=== PATIENT | male | born 1935 | race Caucasian/White ===

== ENCOUNTER → 2017-12-07 02:00 | Outpatient (REF) | payer MEDICARE, OTHER, SELFPAY ==
[2017-12-07 04:59] LABS: Adenovirus F 40/41, stool Not Detected (NotDetected); Astrovirus Not Detected (NotDetected); Campylobacter Not Detected (NotDetected); Clostridium Difficile A/B, PCR Not Detected (NotDetected); Cryptosporidium Not Detected (NotDetected); Cyclospora Cayetanesis Not Detected (NotDetected); Entamoeba histolytica Not Detected (NotDetected); Enteroaggregative E coli Not Detected (NotDetected); Enteropathogenic E coli Not Detected (NotDetected); Enterotoxigenic E coli Not Detected (NotDetected); Giardia lamblia Not Detected (NotDetected); Norovirus Not Detected (NotDetected); Plesimonas Shigalloides, PCR Not Detected (NotDetected); Rotavirus A Not Detected (NotDetected); Salmonella, PCR Not Detected (NotDetected); Sapovirus Not Detected (NotDetected); Shiga-like toxin E coli Not Detected (NotDetected); Shigella Enterovasive E coli Not Detected (NotDetected); Vibrio Cholerae Not Detected (NotDetected); Vibrio, PCR Not Detected (NotDetected); Yersinia Entercolitica, PCR Not Detected (NotDetected)
== END ==
LOC: LAB 02:00
PROVIDERS: Visit Provider Emergency Medicine
DX: R19.7 Diarrhea, unspecified (principal)
CPT/HCPCS: 87507

== ENCOUNTER → 2018-04-23 13:54 | Outpatient (CLI) | payer MEDICARE, MEDICAID, SELFPAY ==
--- NOTE | 2018-04-23 13:57 | CI_ITS ---
Cerebrovascular Exam Indications: 780.4 Dizziness and giddiness. IMPRESSIONS 1. The bilateral vertebral arteries are patent with normal antegrade flow. 2. Study suggests 20-49% stenosis involving the right internal carotid artery. 3. Study suggests less than 20% stenosis involving the left internal carotid artery. History: Coronary artery disease. Risk factors: Hypertension. Diabetes mellitus. Carotid duplex study. Complete study and Doppler flow study including spectral analysis, color and jewell scale imaging. Location: Vascular laboratory. Patient status: Outpatient. Tables: Arterial flow: + +--------+--------+ Location V sys V ed + +--------+--------+ Right CCA - proximal 51.9cm/s 11.8cm/s + +--------+--------+ Right CCA - distal 33.1cm/s 8.3cm/s + +--------+--------+ Right ECA 45.2cm/s -------- + +--------+--------+ Right ICA - proximal 43cm/s 8.8cm/s + +--------+--------+ Right ICA - mid 35.3cm/s 11.6cm/s + +--------+--------+ Right ICA - distal 49.1cm/s 14.9cm/s + +--------+--------+ Right vertebral 24.3cm/s -------- + +--------+--------+ Left CCA - proximal 41.9cm/s 9.4cm/s + +--------+--------+ Left CCA - distal 40.3cm/s 8.3cm/s + +--------+--------+ Left ECA 49.6cm/s 40.3cm/s + +--------+--------+ Left ICA - proximal 41.4cm/s 10.5cm/s + +--------+--------+ Left ICA - mid 41.4cm/s 13.8cm/s + +--------+--------+ Left ICA - distal 50.2cm/s 16.5cm/s + +--------+--------+ Left vertebral 23.2cm/s -------- + +--------+--------+ Velocity ratios: + + + + + + Right, V sys Right, V ed Left, V sys Left, V ed + + + + + + Max ICA/dist CCA 1.48 1.8 1.25 2 + + + + + + (Report amended ) Electronically signed by: Dashawn Weiner [id number]
--- NOTE | 2018-04-23 13:57 | CA_ITS ---
PROCEDURE: INDICATIONS FOR THE TEST: Chest pain COPD Heart MurmurX Tobacco Smoking Palpitations Fatigue Syncope Edema HypertensionXDiabetes MellitusX Rheumatic Fever SOB DOEXObesity HyperlipidemiaX Family History HD Additional History CAD,DIZZINESS PATIENT INFORMATION HEIGHT: 74 WEIGHT:218 GENDER: Male B/P:118/72 2-D/M-MODE INTERPRETATION: 2-D MEASUREMENTS OBSERVED VALUES IN CMS Right Ventricular Dimension (RVDd) 2.6 Interventricular Septum (Thickness)(IVsd) 1.1 Left Ventricular Internal Dimensions(LVIDd) 5.2 Left Ventricular Posterior Wall (Thickness)(LVPWd) 1.2 Aortic Root 3.7 Aortic Cusp Separation 1.0 Left Atrial Dimensions (LAD) 3.0 2D 1. Left atrium is mildly enlarged, left ventricle is normal size, mild concentric left ventricular hypertrophy, visually estimated ejection fraction of 55% with no regional wall motion abnormality, septum has sigmoid configuration. 2. The right atrium is mildly enlarged, right ventricle is normal size and contractility. 3. The aortic valve is thickened and calcified with severe restriction the leaflet mobility. 4. The mitral and tricuspid valve leaflets are minimally thickened. 5. The pulmonic valve is poorly visualized. 6. No significant pericardial effusion noted. DOPPLER INTERROGATION: 1. The maximum aortic out flow velocity recorded is 4.1 m/s, resulting in a mean gradient across valve of 39 mmHg, the valve area is not accurately calculated, this represents severe aortic stenosis. There is mild aortic insufficiency present. 2. The mitral inflow velocities within normal range, there is no mitral stenosis, there is mild mitral regurgitation, grade 1 diastolic dysfunction seen with tissue Doppler evidence of raised left atrial pressure. 3. Mild tricuspid regurgitation, tricuspid regurgitation jet velocity is inadequate for calculation of the right ventricular systolic pressure. CONCLUSION: 1. Mildly enlarged left atrium, normal left ventricular size, mild concentric left ventricular hypertrophy, visually estimated ejection fraction 55% with no regional wall motion abnormality, septum has sigmoid configuration. Grade 1 diastolic dysfunction seen with tissue Doppler evidence of raised left atrial pressure. 2. Thickened and calcified aortic valve with mean gradient across valve of 39 mmHg represents severe aortic stenosis, there is mild aortic insufficiency. 3. Mild mitral and tricuspid regurgitation 4. No significant pericardial effusion noted.
== END ==
PROVIDERS: PCP Emergency Medicine; Visit Provider Nurse Practitioner Family
DX: E11.8 Type 2 diabetes mellitus with unspecified complications (principal); I10 Essential (primary) hypertension; R01.1 Cardiac murmur, unspecified; R09.89 Other specified symptoms and signs involving the circulatory and respiratory systems; R42 Dizziness and giddiness; E78.49 Other hyperlipidemia; Z79.84 Long term (current) use of oral hypoglycemic drugs; Z87.891 Personal history of nicotine dependence
CPT/HCPCS: 93306; 93880

== ENCOUNTER → 2018-12-25 15:03 | Outpatient (CLI) | payer MEDICARE, MEDICAID, SELFPAY ==
[2018-12-25 15:07] LABS: Adenovirus F 40/41, stool Not Detected (NotDetected); Astrovirus Not Detected (NotDetected); Campylobacter Not Detected (NotDetected); Clostridium Difficile A/B, PCR Not Detected (NotDetected); Cryptosporidium Not Detected (NotDetected); Cyclospora Cayetanesis Not Detected (NotDetected); Entamoeba histolytica Not Detected (NotDetected); Enteropathogenic E coli Not Detected (NotDetected); Enterotoxigenic E coli Not Detected (NotDetected); Giardia lamblia Not Detected (NotDetected); Norovirus Not Detected (NotDetected); Plesimonas Shigalloides, PCR Not Detected (NotDetected); Rotavirus A Not Detected (NotDetected); Salmonella, PCR Not Detected (NotDetected); Sapovirus Not Detected (NotDetected); Shiga-like toxin E coli Not Detected (NotDetected); Shigella Enterovasive E coli Not Detected (NotDetected); Vibrio Cholerae Not Detected (NotDetected); Vibrio, PCR Not Detected (NotDetected); Yersinia Entercolitica, PCR Not Detected (NotDetected)
[2018-12-25 17:29] LABS: Enteroaggregative E coli Detected (NotDetected)
== END ==
PROVIDERS: Visit Provider Emergency Medicine
DX: R19.7 Diarrhea, unspecified (principal); A04.0 Enteropathogenic Escherichia coli infection
CPT/HCPCS: 87506

== ENCOUNTER → 2019-01-06 12:30 | Outpatient (CLI) | payer MEDICARE, MEDICAID, SELFPAY ==
--- NOTE | 2019-01-06 13:00 | FL_ITS ---
PROCEDURE: FL BARIUM SWALLOW MODIFIED CLINICAL INDICATION: DYSPHAGIA COMPARISON: No exams were available for comparison TECHNIQUE: Patient administered varying consistencies of barium contrast, while viewed in lateral position under real-time fluoroscopy with cine recording. FLUOROSCOPY TIME:3 minutes and 56 seconds The study was performed in conjunction with speech pathologist. Please see that report & recommendations. FINDINGS: Patient was given varying consistencies of barium. There is moderate delay in initiation of the swallowing mechanism as well as stasis within the vallecula and piriform sinuses. No obvious aspiration or penetration evident. There was poor bolus formation.. IMPRESSION: Delay and stasis with poor bolus formation. No aspiration or penetration Please see speech pathologist report and recommendations. Dictated by: Dashawn Weiner MD 01/07/2019 08:31 Electronically signed by Dashawn Weiner MD in [place] 01/07/2019 08:31
--- NOTE | 2019-01-06 14:23 | HMH.SLMBS2 ---
Speech & Language Evaluation Speech/Language Mod Barium Swallow Start: 01/06/19 14:02 Freq: once Status: Complete Protocol: Document 01/06/19 14:02 TAHMINA (Rec: 01/06/19 14:23 CMA [id number]) [facility] [place] Recommendations Diet Dietary Recommendations Dysphagia Mechanical Soft, Ground Meats,Thin Liquids Treatment/Strategies Strategy/Precaution Recommend Sitting Upright (90 deg) Referrals/Other Other Recommendations Sit upright for an hour following meals Mod Barium Swallow Impressions Summary and Impressions Oral Phase Impression Mild Impairment Oral Phase Summary Patient presented with mild oral phase impairment characterized by difficulty with mastication of mechanical soft trial due to insufficient dentition. Pharyngeal Phase Impression Moderate Impairment Pharyngeal Phase Summary Patient presented with moderate pharyngeal phase impairment characterized by significant vallecular pooling following trials of thin, nectar liquid, pudding, puree, mechanical soft, and pill with thin liquid wash. Compensatory strategies did not improve pooling. Speech/Language MBS Assessment/Goals/Plan Assessment Date of Evaluation: 01/06/19 Evaluation Type Initial Certification Assessment/Problems Dysphagia Does Patient Qualify for Service No Qualify/Failure Comment Patient will be followed up at SNF. Recommendations PHYSICIAN CERTIFICATION: The specified therapy services are required, authorized, and reviewed every 30 days. Diet Recommendations Dysphagia Mechanical Soft Liquid Type Recommendations Normal/Thin SL Swallow Guidelines Standard Aspiration Prec. Dysphagia Swallow Precautions/Strategies Sitting Upright (90 deg) Plan Pt/Guardian verbally ack understanding Yes of dx/prognosis/goals G -code Required Yes G-CODES ST Current Status [id number] ST Current Status Modifier CJ-At least 20% but less than 40% impaired, limited or restricted ST Goal Status [id number] ST Goal Status Modifier CJ-At least 20% but less than 40% impaired, limited or restricted Mod Barium Swallow Setup Exam Setup Radiologist Dashawn Weiner Level of Consciousness Awake
== END ==
PROVIDERS: PCP Emergency Medicine; Visit Provider Emergency Medicine
DX: R13.10 Dysphagia, unspecified (principal)
CPT/HCPCS: 70371; 92611

== ENCOUNTER → 2019-03-09 22:55 | Outpatient (REF) | payer MEDICARE, MEDICAID, SELFPAY | LOC: LAB.DROPOF 22:55 | PROVIDERS: Visit Provider Emergency Medicine | DX: R50.9 Fever, unspecified (principal); R05 Cough; R09.89 Other specified symptoms and signs involving the circulatory and respiratory systems | CPT/HCPCS: 87275; 87276 ==

== ENCOUNTER → 2019-04-24 10:46 | Outpatient (CLI) | payer MEDICARE, MEDICAID, SELFPAY ==
--- NOTE | 2019-04-24 10:49 | FL_ITS ---
PROCEDURE: FL BARIUM SWALLOW MODIFIED CLINICAL INDICATION: DYSPHAGIA COMPARISON: No exams were available for comparison TECHNIQUE: Patient administered varying consistencies of barium contrast, while viewed in lateral position under real-time fluoroscopy with cine recording. FLUOROSCOPY TIME:2 minutes and 55 seconds The study was performed in conjunction with speech pathologist. Please see that report & recommendations. FINDINGS: Patient was given varying consistencies of barium. No aspiration or penetration.. There was vallecular residue with all consistencies with delay in initiation of the swallowing mechanism with poor oral motor control. There was a persistent lobular filling defect within the upper esophagus at the C5-C6 level. Possibly due to small polyp IMPRESSION: No aspiration or penetration identified. There was delay in initiation of the swallowing mechanism with a moderate amount of residual. There was also a persistent filling defect in the upper esophagus which could be due to small polyp. Please see speech pathologist report and recommendations. Dictated by: Dashawn Weiner MD 04/25/2019 17:27 Electronically signed by Dashawn Weiner MD in [place] 04/25/2019 17:27
--- NOTE | 2019-04-24 14:07 | HMH.SLMBS2 ---
Speech & Language Evaluation Speech/Language Mod Barium Swallow Start: 04/24/19 13:53 Freq: once Status: Complete Protocol: Document 04/24/19 13:53 NAPOLEON (Rec: 04/24/19 14:07 NAPOLEON [id number]) General Information General Current Food Consistancy Pureed,Thin Liquids Dentition Poor Dentition Oxygen Status Room Air Patient Orientation Person,Time Ability to Follow Directions Fair Communication Ability No Impairment MBS Recommendations Diet Dietary Recommendations Pureed,Thin Liquids,Other Comment Straw only Treatment/Strategies Strategy/Precaution Recommend Sitting Upright (90 deg), Liquids from Straw,Small Bites and Sips,Alternate Liquids/ Solids Mod Barium Swallow Impressions Summary and Impressions Oral Phase Impression Mild Impairment Oral Phase Summary Mr. Ornelas talked consistently during evaluation which made it difficult to masticate mechanical soft along with poor dentition. Pharyngeal Phase Impression Moderate Impairment Pharyngeal Phase Summary Mr. Ornelas exhibited aspiration with thin liquids via cup during the swallow. He did cough after the swallow but was unable to clear aspirated liquids. He had vallecular residue with all consistencies even using a thin wash due to atrophy of epiglottis. Speech/Language MBS Assessment/Goals/Plan Assessment Date of Evaluation: 04/24/19 Evaluation Type Initial Certification Assessment/Problems Dysphagia Does Patient Qualify for Service No Qualify/Failure Comment Diet remains appropriate for Mr. Ornelas however it is recommended he use straws only . Recommendations PHYSICIAN CERTIFICATION: The specified therapy services are required, authorized, and reviewed every 30 days. Crush Meds Crush all meds Plan Pt/Guardian verbally ack understanding Yes of dx/prognosis/goals G -code Required No Mod Barium Swallow Setup Exam Setup Radiologist Dashawn Weiner Level of Consciousness Awake,Alert,Appropriate Position (degrees) 90 Mod Barium Swallow-Lat View Textures Lateral View Food Presentation Thin Liquid via Spoon,Thin Liquid via Cup,Th
== END ==
PROVIDERS: PCP Emergency Medicine; Visit Provider Emergency Medicine
DX: R13.10 Dysphagia, unspecified (principal)
CPT/HCPCS: 70371; 92611

== ENCOUNTER → 2019-05-26 17:34 | Outpatient (CLI) | payer MEDICARE, MEDICAID, SELFPAY ==
[2019-05-26 17:38] LABS: Microscopic, Urine URINE MICROSCOPIC (MICROSCOPIC)
[2019-05-26 18:49] LABS: Appearance,Urine CLEAR (Clear); Bilirubin,Urine Negative (Negative); Blood, Urine Negative (Negative); Color,Urine YELLOW (Yellow); Glucose,Urine (UA) Negative (Negative); Ketones,Urine Negative (Negative); Leukocyte Esterase,Urine Negative (Negative); Nitrate,Urine Negative (Negative); Protein,Urine Negative (Negative); Specific Gravity, Urine 1.015 (1.005-1.030); Urobilinogen,Urine 0.2 EU/dl (0.2)
[2019-05-26 19:22] LABS: Bacteria,Urine Trace /lpf; Squamous Epithelial Cell,Urine Occasional #/hpf (0-5); WBC,Urine Occasional #/hpf (0-3)
== END ==
PROVIDERS: Visit Provider Emergency Medicine
DX: N39.0 Urinary tract infection, site not specified (principal)
CPT/HCPCS: 81001; 87086

== ENCOUNTER → 2019-06-02 07:21 | Outpatient (CLI) | payer MEDICARE, MEDICAID, SELFPAY ==
--- NOTE | 2019-06-02 07:21 | CA_ITS ---
APPROVED REPORT Raw Stock Drier Tender: Britney Judd RVT Laterality: Bilateral Study Quality: Good Indications: Carotid stenosis Risk Factors Hypertension: Hyperlipidemia Diabetes Doppler Spectral Velocity Analysis ECA (R) 42.80/9.90 cm/s ECA (L) 37.70/8.90 cm/s dICA (R) 47.80/19.70 cm/s dICA (L) 44.70/17.20 cm/s Tyrone (R) 48.10/19.10 cm/s [place]one (L) 30.00/10.40 cm/s pICA (R) 27.50/9.10 cm/s pICA (L) 32.20/13.20 cm/s dCCA (R) 35.40/10.00 cm/s dCCA (L) 35.00/7.70 cm/s pCCA (R) 43.30/7.50 cm/s pCCA (L) 63.60/15.40 cm/s ICA/CCA 1.36 Vert (L) 29.70/4.70 cm/s ICA/CCA 1.28 Conclusion Study suggests 20-49% stenosis of the right internal cartoid artery unchanged from 04/23/18 study. Study suggests less than 20% stenosis of the left internal crtoid artery unchanged from the 04/23/18 study. Antegrade flow seen in the left vertebral artery. Non-visualization of the right vertebral artery. Electronically signed by : Dashawn Weiner MD 06/02/2019 15:31:21
--- NOTE | 2019-06-02 07:21 | CA_ITS ---
APPROVED REPORT EXAM: Comprehensive 2D, Doppler, and color-flow Echocardiogram Cfo Controller: Marilee Wasserman CRT Ht: 6 ft 2 in Wt: 180lbs BSA: 2.08 BP: 110/62 mmHg Indications: Abnormal ECG, Aortic Valve Disease, Diabetes, Hyperlipidemia, bradycardia, 2D Dimensions LVOT 1.46 cm (M/F) 1.5-2.5 M-Mode Dimensions RVDd 2.65 cm (0.9-2.6) LVDd 4.44 cm (3.5-5.7) LVDs 3.19 cm (3.5-5.7) IVSd 1.97 cm (0.6-1.1) PWd 0.54 cm (0.6-1.1) EF (Teich) 54.70% FS 28.20% EDV (Teich) 89.60 mL ESV (Teich) 40.60 mL LV Diastology E/A Ratio 2.69 Aortic Valve LVOT Max 63.00 (70-110 cm/s) LVOT VTI 13.18 cm Mitral Valve MV A Velocity 45.00 (40-130 cm/s) Left Ventricle Left atrium is moderately enlarged, left ventricle is normal size, mild concentric left ventricular hypertrophy, visually estimated ejection fraction approximately 50% with no regional wall motion abnormality, endocardial surfaces are very poorly visualized. Right Ventricle Right atrium and right ventricular mildly enlarged with normal contractility. Aortic Valve Aortic valve is thickened and calcified with severe restriction in leaflet mobility, the mean gradient across aortic valve is approximately 40 mmHg, valve area is not accurately calculated, there is severe aortic stenosis, there is mild aortic insufficiency. Mitral Valve Mitral valve leaflets are minimally thickened, there is no mitral stenosis, there is mild mitral regurgitation. Tricuspid Valve Tricuspid valve is grossly normal, there is mild tricuspid regurgitation. Tricuspid regurgitation jet velocity is inadequate for calculation of the right ventricular systolic pressure. Pulmonic Valve Pulmonic valve is poorly visualized. Great Vessels Aortic root is normal size. Pericardium No significant pericardial effusion noted. Conclusion 1. The left atrium, normal left ventricular size, mild concentric left ventricular hypertrophy, visually estimated ejection fraction 50% with no regional wall motion abnormality, diastolic parameters are inconclusive. 2. Thickened and calcified aortic valve with severe restriction in leaflet mobility, the mean gradient across aortic valve is approximately 40 mmHg, this represents severe aortic stenosis, there is mild aortic insufficiency. 3. Mild mitral and tricuspid regurgitation. 4. No significant pericardial effusion noted. Electronically signed by : Lucian Johnson, 06/02/2019 21:39:44
== END ==
PROVIDERS: PCP Emergency Medicine; Visit Provider Urology
DX: E11.8 Type 2 diabetes mellitus with unspecified complications (principal); I10 Essential (primary) hypertension; I25.10 Atherosclerotic heart disease of native coronary artery without angina pectoris; I35.0 Nonrheumatic aortic (valve) stenosis; I44.0 Atrioventricular block, first degree; I65.23 Occlusion and stenosis of bilateral carotid arteries; R00.1 Bradycardia, unspecified; R01.1 Cardiac murmur, unspecified; R09.89 Other specified symptoms and signs involving the circulatory and respiratory systems; R94.31 Abnormal electrocardiogram [ECG] [EKG]; E78.49 Other hyperlipidemia
CPT/HCPCS: 93306; 93880

== ENCOUNTER 2019-09-17 08:17 | Inpatient (IN) | payer MEDICARE, MEDICAID, SELFPAY ==
[2019-09-17] VITALS (13 sets, daily range): BP systolic 95–121; BP diastolic 56–100; PULSE 100–132; RESP 18–26; TEMP 36.4–36.8; O2SAT 95–100; BMI 26.4; BMI 27.1; BMI 25.4
--- NOTE | 2019-09-17 08:18 | ECG_ITS ---
APPROVED REPORT Exam: Resting ECG HR:126 bpm ECG Measurements Heart Rate 126 AXES QRSd 72 QRS 40 QT 396 T 130 QTc 573 <Conclusion> Atrial fibrillation with rapid ventricular response with premature ventricular or aberrantly conducted complexes Septal infarct, age undetermined Abnormal ECG Electronically signed by : Bryce Stuart, 09/19/2019 07:56:17
--- NOTE | 2019-09-17 08:21 | XR_ITS ---
PROCEDURE: XR CHEST PORTABLE CLINICAL HISTORY: ams, cough COMPARISON: CR CXR1 CHEST-PORTABLE from 03/17/2016 CR CXR CHEST(2 VIEWS-NOT PORTABLE) from 03/18/2016 CR XR CHEST PORTABLE from 12/24/2018 FINDINGS: There is cardiomegaly without failure. Increased markings are present involving the left lung suspicious for underlying pneumonia. Patchy density is present also in the right lung base which could be related to an area of infiltrate. No acute bony abnormalities. IMPRESSION: Overall slight increased density of the left lung and right lung base suspicious for pneumonia Dictated b Dashawn Weiner MD 09/17/2019 09:35 Dashawn Weiner MD in [place] 09/17/2019 09:35
--- NOTE | 2019-09-17 08:25 | HMH.EDGENADL ---
ED Disposition Clinical Impression: Urinary tract infection Qualifiers: Urinary tract infection type: acute cystitis Hematuria presence: without hematuria Qualified Code(s): N30.00 - Acute cystitis without hematuria Sepsis Qualifiers: Sepsis type: sepsis due to unspecified organism Sepsis acute organ dysfunction status: without acute organ dysfunction Qualified Code(s): A41.9 - Sepsis, unspecified organism Pneumonia Qualifiers: Pneumonia type: due to unspecified organism Laterality: right Lung location: lower lobe of lung Qualified Code(s): J18.9 - Pneumonia, unspecified organism Disposition: Admitted As Inpatient Condition on Discharge: Fair Time of Disposition: 10:38 - Critical Care Critical Care Time: No Attestation: On , the high probability of a clinically significant, sudden or life threatening deterioration of the following system(s) required my full and direct attention, intervention and personal management. The time I documented below is in addition to time spent performing reported procedures but includes the following listed in this critical care notation. Medical Decision Making - Medical Records Medical records reviewed: Yes: I reviewed the patient's medical records. - Iban Inquiry Pt receiving controlled substance: No Vital Signs: 09/17/19 08:18 09/17/19 08:53 09/17/19 09:05 Temperature 97.5 F L Temperature Source Rectal Pulse Rate Pulse Rate [Left Radial] 132 H 112 H 130 H Respiratory Rate 26 H Blood Pressure Blood Pressure [Right Arm] 104/78 L 95/71 L 112/93 H Blood Pressure Mean [Right Arm] 86 79 99 Blood Pressure Source [Right Arm] Automatic Cuff Blood Pressure Position Blood Pressure Position [Right Arm] Sitting Sitting Sitting 02 Sat by Pulse Oximetry 96 97 96 Oxygen Delivery Method Room Air Room Air 09/17/19 09:27 09/17/19 10:00 09/17/19 10:37 Temperature Temperature Source Pulse Rate Pulse Rate [Left Radial] 124 H 120 H 115 H Respiratory Rate Blood Pressure Blood Pressure [Right Arm] 96/69 L 95/73 L 121/100 H Blood Pressure Mean [Right Arm] 78 80 107 Blood Pressure Source [Right Arm] Automatic Cuff Automatic Cuff Automatic Cuff Blood Pressure Position Blood Pressure Position [Right Arm] Sitting Sitting Sitting 02 Sat by Pulse Oximetry 95 96 Oxygen Delivery Method Room Air 09/17/19 11:00 09/17/19 11:43 09/17/19 11:47 Temperature 98 F Temperature Source Oral Pulse Rate 122 H Pulse Rate [Left Radial] 118 H Respiratory Rate 22 Blood Pressure 102/61 L Blood Pressure [Right Arm] 106/67 L Blood Pressure Mean [Right Arm] 80 Blood Pressure Source [Right Arm] Automatic Cuff Blood Pressure Position Sitting Blood Pressure Position [Right Arm] Sitting 02 Sat by Pulse Oximetry 97 Oxygen Delivery Method Room Air Room Air - Lab Data Lab Results 09/17/19 08:30: WBC 5.1, RBC 4.05 L, Hgb 11.0 L, Hct 32.0 L, MCV 79.1 L, MCH 27.1, MCHC 34.3, RDW 15.8, Plt Count 239, MPV 8.6, Neut % (Auto) 66.8, Lymph % (Auto) 23.4, Dillingham % (Auto) 7.1, Eos % (Auto) 2.5, Baso % (Auto) 0.3, Neut # (Auto) 3.4, Lymph # (Auto) 1.2, [place]ham # (Auto) 0.4, Eos # (Auto) 0.1, Baso # (Auto) 0.0 09/17/19 08:30: Sodium 139, Potassium 4.5, Chloride 109 H, Carbon Dioxide 22, Anion Gap 12.5, BUN 24 H, Creatinine 1.00, Estimated Creat Clear 69, Estimated GFR 71, Est GFR ( Amer) 86, Glucose 115 H, Calcium 9.7, Total Bilirubin 0.6, AST 23, ALT 11 L, Alkaline Phosphatase 108, Total Protein 6.8, Albumin 3.3 L, Globulin 3.5 H, Albumin/Globulin Ratio 0.9 L, Lipase 21 L 09/17/19 08:30: Lactate 1.0 09/17/19 08:30: Troponin I 0.02, NT-Pro-B Natriuret Pep 2960 H 09/17/19 08:40: Urine Color Yellow, Urine Appearance Clear, Urine pH 5.5, Ur Specific Junior <= 1.005, Urine Protein Negative, Urine Glucose (UA) Negative, Urine Ketones Negative, Urine Blood 2+, Urine Nitrate Positive, Urine Bilirubin Negative, Urine Urobilinogen 0.2, Ur Leukocyte Esterase 2+ A, Urine RBC
--- NOTE | 2019-09-17 08:33 | PC.NURSE ---
RT at bedside
[2019-09-17 08:46] LABS: ABG Base Excess -4.3 mmol/L (-2.4-2.3); ABG HCO3 19.2 mmhg (22.0-26.0); ABG Oxygen Saturation 96 % (90-100); ABG PCO2 26.4 mmhg (35.0-45.0); ABG PH 7.48 mmol/L (7.35-7.45); ABG PO2 82.2 mmhg (80-100); Oxygen ROOM AIR %
[2019-09-17 08:47] LABS: Source L. RADIAL
[2019-09-17 08:47] LABS: Microscopic, Urine URINE MICROSCOPIC (MICROSCOPIC)
[2019-09-17 08:51] LABS: Basophils % 0.3 % (0.1-2.0); Chloride 109 mmol/L (98-107); Eosinophils # 0.1 K/mm3 (0.0-0.4); Eosinophils % 2.5 % (0.1-12.0); Lymphocytes # 1.2 K/mm3 (0.7-4.5); Lymphocytes % 23.4 % (10-50); Mean Corpuscular HGB Conc 34.3 g/dL (31.8-35.4); Mean Corpuscular Hemoglobin 27.1 pg (27.0-31.2); Mean Corpuscular Volume 79.1 fl (80-94); Mean Platelet Volume 8.6 fl (7.4-10.4); Monocytes # 0.4 K/mm3 (0.1-1.0); Monocytes % 7.1 % (1.7-9.3); Neutrophils # 3.4 K/mm3 (1.8-7.8); Neutrophils % 66.8 % (37.0-80.0); Platelet Count 239 K/mm3 (142-424); Red Blood Count 4.05 M/mm3 (4.60-6.20); Red Cell Distribution Width 15.8 % (11.5-17.5); Sodium 139 mmol/L (136-145); White Blood Count 5.1 K/mm3 (4.8-10.8)
[2019-09-17 08:52] LABS: Potassium 4.5 mmoL/L (3.5-5.1)
[2019-09-17 08:52] LABS: Appearance,Urine CLEAR (Clear); Bilirubin,Urine Negative (Negative); Blood, Urine 2+ (Negative); Color,Urine YELLOW (Yellow); Glucose,Urine (UA) Negative (Negative); Ketones,Urine Negative (Negative); Leukocyte Esterase,Urine 2+ (Negative); Nitrate,Urine POSITIVE (Negative); PH,Urine 5.5 (5.0-8.5); Protein,Urine Negative (Negative); Specific Gravity, Urine <= 1.005 (1.005-1.030); Urobilinogen,Urine 0.2 EU/dl (0.2)
[2019-09-17 08:54] LABS: Alanine Aminotransferase 11 U/L (12-78); Albumin Level 3.3 g/dl (3.5-5.0); Albumin/Globulin Ratio 0.9 (1.1-1.8); Alkaline Phosphatase 108 U/L (38-126); Anion Gap 12.5 mEq/L (5-15); Aspartate Amino Transferase 23 U/L (17-59); Bilirubin,Total 0.6 mg/dl (0.2-1.3); Blood Urea Nitrogen 24 mg/dl (9-20); Calcium 9.7 mg/dl (8.4-10.2); Carbon Dioxide 22 mmol/L (22.0-30.0); Creatinine Clearance Estimated 69 mL/min (50-200); Estimated Glomerular Filt Rate 71 ml/min (>60); GFR (African American) 86 ML/MIN (>60); Globulin 3.5 g/dL (1.3-3.2); Glucose 115 mg/dl (74-100); Lipase 21 U/L (23-300); Total Protein,Serum 6.8 g/dl (6.3-8.2)
[2019-09-17 09:02] LABS: Bacteria,Urine 2+ /lpf
[2019-09-17 09:03] LABS: Adenovirus,PCR Not Detected (NotDetected); Bordetella Pertussis Not Detected (NotDetected); Chlamydophila Pneumoniae, PCR Not Detected (NotDetected); Coronavirus 19, PCR Not Detected (NotDetected); Coronavirus 229E Not Detected (NotDetected); Coronavirus NL63 Not Detected (NotDetected); Coronavirus OC43 Not Detected (NotDetected); Coronovirus HKU1,PCR Not Detected (NotDetected); Human Metapneumovirus Not Detected (NotDetected); Influenza A, PCR Not Detected (NotDetected); Influenza AH1, 2009 Not Detected (NotDetected); Influenza AH1, PCR Not Detected (NotDetected); Influenza AH3,PCR Not Detected (NotDetected); Influenza B, PCR Not Detected (NotDetected); Mycoplasma Pneumoniae, PCR Not Detected (NotDetected); Parainfluenza 1, PCR Not Detected (NotDetected); Parainfluenza 2, PCR Not Detected (NotDetected); Parainfluenza 3, PCR Not Detected (NotDetected); Parainfluenza 4, PCR Not Detected (NotDetected); Respiratory Syncytial Virus Not Detected (NotDetected); Rhinovirus/Enterovirus Not Detected (NotDetected)
--- NOTE | 2019-09-17 09:06 | PC.NURSE ---
Rad at bedside
[2019-09-17 09:19] LABS: NT Pro Brain Natriuretic Pep. 2960 pg/mL (0-450); Troponin I 0.02 ng/ml (0.00-0.034)
--- NOTE | 2019-09-17 10:19 | PC.NURSE ---
PT PULLED OUT HIS IV , IV RESTARTED 20G R FA , PT MUCH MORE ALERT AND TALKING WITH NO COMPLAINTS. 2ND BAG OF NACL INFUSING NOW
--- NOTE | 2019-09-17 11:22 | SW/DCPLANNER ---
Addendum entered by Sulema Peguero 09/22/19 14:31: Negative COVID is in and patient will discharge to [facility] with Hospice follow up. Addendum entered by Sulema Peguero 09/22/19 10:16: has recommended Hospice services for this patient. I have faxed patient information to Hospice for them to follow up with patient at [facility]. I have informed Jennifer of this plan. Addendum entered by Sulema Peguero 09/22/19 09:27: I have notified Jennifer that this patient will discharge back today. Patient will discharge back [facility] level of care. Addendum entered by Sulema Peguero 09/19/19 10:44: I have updated Jennifer with [facility] regarding this patient. Original Note: This patient currently resides at [facility]. I have spoke with Jennifer and she has stated that this patient is [facility] level of care. I will continue to follow up with Jennifer until patient is medically stable for discharge.
--- NOTE | 2019-09-17 11:29 | PC.NURSE ---
report called to floor
[2019-09-17 12:14] LABS: Troponin I 0.01 ng/ml (0.00-0.034)
--- NOTE | 2019-09-17 13:32 | HMH.PHAVTE ---
[facility] Pharmacy VTE Monitoring - Patient Demographics Admission date: 09/17/19 Report Date: 09/17/19 Time: 13:32 Allergies/Adverse Reactions: Patient Allergies No Known Allergies Allergy (Verified 07/27/19 14:55) Height: 1.83 m Weight: 85.45 kg Patient Problems: Current Active Problems UTI (urinary tract infection) (Acute) Sepsis (Acute) Pneumonia (Acute) - VTE Risk Labs: VTE Related Lab Results Hgb 11.0 g/dL (14.1-18.0) L 09/17/19 08:30 Hct 32.0 % (42.0-52.0) L 09/17/19 08:30 Plt Count 239 K/mm3 (142-424) 09/17/19 08:30 BUN 24 mg/dl (9-20) H 09/17/19 08:30 Creatinine 1.00 mg/dl (0.66-1.25) 09/17/19 08:30 Estimated Creat Clear 69 mL/min (50-200) 09/17/19 08:30 Was VTE Risk Assessment Performed: Yes VTE Score: 5 VTE Risk Level: Low Risk - Prophylaxis VTE Prophylaxis Ordered?: Yes Types of VTE Prophylaxis: TEDS Knee High Location of Applied Device: Bilateral Lower Extremeties - VTE Diagnosis Confirmed Treatment or plan recommended: Continue Current Treatment
--- NOTE | 2019-09-17 13:51 | HMH.PHAINT ---
MEDICATION RECONCILIATION COMPLETED ON PATIENT USING MAR FROM [facility]. -ERI BERRIOS, ROBRETOD
--- NOTE | 2019-09-17 14:01 | HMH.CNCARD ---
History of Present Illness Consult date: 09/17/19 Requesting physician: Gregory Duffy Consult reason: shortness of breath Chief complaint: SOA Additional Medical History:: 1. History of paroxysmal atrial fibrillation A. No anticoagulation due to history of GI bleed 2. Hypertension A. Echo, 05/2019, 1. The left atrium, normal left ventricular size, mild concentric left ventricular hypertrophy, visually estimated ejection fraction 50% with no regional wall motion abnormality, diastolic parameters are inconclusive. 2. Thickened and calcified aortic valve with severe restriction in leaflet mobility, the mean gradient across aortic valve is approximately 40 mmHg, this represents severe aortic stenosis, there is mild aortic insufficiency. 3. Mild mitral and tricuspid regurgitation. 4. No significant pericardial effusion noted 3. Severe aortic stenosis by echo, 05/2019 4. Dementia A. Head CT, 12/2018, chronic ischemic gliotic changes. 5. Carotid artery stenosis, mild to moderate A. CNI, 05/2019, R ICA 20 to 49%, LICA 20% 6. Peripheral arterial disease 7. Coronary artery disease with history of coronary stenting approximately 2015 History of present illness: 84-year-old male presenting to the emergency department by EMS from his long-term with chief complaint of altered mental status. EMS states that they were called for an elderly male who was combative, altered. He has dementia at baseline and takes Risperdal. No known recent illness, vomiting, diarrhea, fevers, rashes, cough. No known trauma. Patient does take aspirin and Plavix. Documentation states that he is nonverbal and minimally mobile at baseline. No family numbers listed for points of contact. All history obtained from EMS and documentation records In summary this is an 84-year-old male presenting to the emergency department with altered mental status. Patient is GCS 10 on arrival. Nonverbal. Vital signs show tachycardia to 115 bpm. Blood pressure adequate. Patient afebrile. Differential diagnoses are braod for altered mental status in a nonverbal long-term patient. Given IV fluid bolus. Plan to obtain CBC, CMP, chest x-ray, EKG, troponin profile, blood cultures, urinalysis, chest x-ray, noncontrast head CT. Laboratory results are generally unremarkable. No elevation white count. No acute kidney injury. Electrolytes within normal limits. Urinalysis shows bacteria, nitrite positive urinary tract infection. Patient given ertapenem. Meet sepsis criteria with tachycardia, source of infection. Patient given additional fluids to meet 30 cc/kg bolus. Mentation improved and he was slightly conversational. Chest x-ray shows left lower lobe infiltrate. Strep pneumo likely sensitive to ertapenem. We will continue this antibiotic. Patient will be admitted for further treatment of urinary tract infection, pneumonia, sepsis. CT scan unable to be attained at this time, CT scanner will be functional again this afternoon. Spoke with Dr. Duffy, admitting physician who will follow-up results of CT scan when performed The above per Dr. Ortega, ER MD Patient is conversational upon my exam in his room. When asked how he is feeling he states I am cooking? With a lot of power. He is denying chest pain at this time. Patient attempts to answer all questions but steers conversation back to electrical power topics. [facility] History Medical History: Reports:: Arrhythmia, Atherosclerotic Heart Disease, Atrial Fibrillation, Cardiomyopathy, Carotid Stenosis, Congestive Heart Failure, Congenital Heart Disease, Coronary Artery Disease, Dementia, Depression, Diabetes Mellitus Type 2, Heart Murmur, Hyperlipidemia, Hypertension, Internal Pacemaker, Peripheral Artery Disease, Renal Disease, Valvular Heart Disease Denies:: Cancer, Diabetes Mellitus Type 1, MRSA *Have you ever received a pneumonia vaccine?: No *Have you received a flu vaccine this season?: Yes Other Medical History: R
[2019-09-17 16:30] LABS: POC Glucose,Bedside 111 (70-110)
--- NOTE | 2019-09-17 16:53 | PC.NURSE ---
new admit this shift. Is a resident of [facility]. Unable to answer most questions. FSBS 111 @ 1630. Tolerates a pureed diet with nectar thick liquids. Meds are crushed and given in pudding. Left BKA noted. No skin issues noted upon admission. Kalani. ROMEO.
--- NOTE | 2019-09-17 18:29 | PC.NURSE ---
RT gave pt neb tx. with sodium chloride to induce SPT. Pt has good cough. No spt collected at this time.
--- NOTE | 2019-09-17 19:57 | HMH.HP ---
*Admission Date: 09/17/19 *Chief complaint: change in mental status *History of present illness: this pt from [facility] presented to the ed -4-year-old male presenting to the emergency department by EMS from his senior care with chief complaint of altered mental status. EMS states that they were called for an elderly male who was combative, altered. He has dementia at baseline and takes Risperdal. No known recent illness, vomiting, diarrhea, fevers, rashes, cough. No known trauma. Patient does take aspirin and Plavix. Documentation states that he is nonverbal and minimally mobile at baseline. No family numbers listed for points of contact. All history obtained from EMS and documentation records.trial fibrillation with rapid ventricular response. Rate 126. QRS 72, QTc 573. pt with a fib In summary this is an 84-year-old male presenting to the emergency department with altered mental status. Patient is GCS 10 on arrival. Nonverbal. Vital signs show tachycardia to 115 bpm. Blood pressure adequate. Patient afebrile. Differential diagnoses are braod for altered mental status in a nonverbal senior care patient. Given IV fluid bolus. Plan to obtain CBC, CMP, chest x-ray, EKG, troponin profile, blood cultures, urinalysis, chest x-ray, noncontrast head CT. Laboratory results are generally unremarkable. No elevation white count. No acute kidney injury. Electrolytes within normal limits. Urinalysis shows bacteria, nitrite positive urinary tract infection. Patient given ertapenem. Meet sepsis criteria with tachycardia, source of infection. Patient given additional fluids to meet 30 cc/kg bolus. Mentation improved and he was slightly conversational. Chest x-ray shows left lower lobe infiltrate. Strep pneumo likely sensitive to ertapenem. We will continue this antibiotic. Patient will be admitted for further treatment of urinary tract infection, pneumonia, sepsis. [facility] History I have reviewed the patient's past medical history: Yes Medical History: Reports:: Arrhythmia, Atherosclerotic Heart Disease, Atrial Fibrillation, Cardiomyopathy, Carotid Stenosis, Congestive Heart Failure, Congenital Heart Disease, Coronary Artery Disease, Dementia, Depression, Diabetes Mellitus Type 2, Heart Murmur, Hyperlipidemia, Hypertension, Internal Pacemaker, Peripheral Artery Disease, Renal Disease, Valvular Heart Disease Denies:: Cancer, Diabetes Mellitus Type 1, MRSA *Have you ever received a pneumonia vaccine?: No *Have you received a flu vaccine this season?: Yes Other Medical History: Reports: Other Other Surgeries: Yes: No Previous Surgery, Cardiac Catheterization, Cardiac Surgery, Mitral Valve Replacement, Pacemaker, Other Amputation: Yes (L lower extremity) Fractures: No - *Social History Smoking Status: Former smoker Alcohol Intake: never Substance Use Type: denies use *Occupational Status:: disabled Housing: other Household Members: other *Travel in the last 8 weeks: None - Psychiatric History Pschychiatric History:: Reports:: Depression Family Hx:: Unable to obtain Review of Systems - Review of Systems Review of systems:: pertinent systems reviewed and negative unless documented below - Constitutional Reports fever(s), Reports weakness - Eyes Denies change in vision - ENT Denies sore throat - *Cardiovascular Reports fast heart rate, Denies chest pain at rest - *Respiratory Denies cough - *Gastrointestinal Denies abdominal pain - *Genitourinary Denies blood in urine - *Musculoskeletal Denies joint pain - Integumentary/Breasts Denies rash - *Neurologic Denies dizziness, Denies seizure-like activity - Psychiatric Reports confusion Meds Home Medications Medication Instructions Recorded Confirmed Type aspirin 81 mg chewable tablet 81 mg PO DAILY tab 04/13/17 09/17/19 History atorvastatin 10 mg tablet 10 mg PO HS tab 04/13/17 09/17/19 History bisacodyl 10 mg rectal suppository 10 mg CA DAILYP PRN each
[2019-09-17 21:27] LABS: POC Glucose,Bedside 110 (70-110)
[2019-09-18] VITALS (12 sets, daily range): BP systolic 90–118; BP diastolic 46–80; PULSE 69–129; RESP 16–22; TEMP 36.4–36.7; O2SAT 95–98; BMI 24.8
[2019-09-18 06:05] LABS: Basophils % 0.7 % (0.1-2.0); Eosinophils # 0.2 K/mm3 (0.0-0.4); Eosinophils % 3.3 % (0.1-12.0); Hematocrit 34.6 % (42.0-52.0); Hemoglobin 11.3 g/dL (14.1-18.0); Lymphocytes # 1.3 K/mm3 (0.7-4.5); Lymphocytes % 23.1 % (10-50); Mean Corpuscular HGB Conc 32.7 g/dL (31.8-35.4); Mean Corpuscular Hemoglobin 26.7 pg (27.0-31.2); Mean Corpuscular Volume 81.7 fl (80-94); Mean Platelet Volume 8.9 fl (7.4-10.4); Monocytes # 0.4 K/mm3 (0.1-1.0); Neutrophils # 3.6 K/mm3 (1.8-7.8); Neutrophils % 64.9 % (37.0-80.0); Platelet Count 248 K/mm3 (142-424); Red Blood Count 4.23 M/mm3 (4.60-6.20); Red Cell Distribution Width 15.9 % (11.5-17.5); White Blood Count 5.5 K/mm3 (4.8-10.8)
[2019-09-18 06:11] LABS: Chloride 112 mmol/L (98-107)
[2019-09-18 06:12] LABS: Potassium 4.2 mmoL/L (3.5-5.1); Sodium 142 mmol/L (136-145)
[2019-09-18 06:15] LABS: Anion Gap 14.2 mEq/L (5-15); Blood Urea Nitrogen 21 mg/dl (9-20); Calcium 9.6 mg/dl (8.4-10.2); Carbon Dioxide 20 mmol/L (22.0-30.0); Creatinine Clearance Estimated 59 mL/min (50-200); Estimated Glomerular Filt Rate 64 ml/min (>60); GFR (African American) 77 ML/MIN (>60); Glucose 114 mg/dl (74-100)
--- NOTE | 2019-09-18 06:54 | PC.NURSE ---
ALERT TO NAME BUT NOT , CURRENT LOCATION, CURRENT PLACE. FISCAL AGENT EQUAL BILAT. PT HAD EPISODES OF AGITATION AT TIMES, DISLODGED IV AND STATED I JUST NEED TO KNOW WHAT I NEED TO DO NOW, I CAN'T TAKE THIS. STAFF INFORMED PT THAT THERE WAS NOTHING TO DO BUT REST AND TO GET TO FEELING BETTER, STAFF STAYED IN THE ROOM TO TALK WITH PT AND THIS CALMED PT DOWN. PT REFUSED TAKING ZOFRAN. PT STATED I DO NOT NEED THAT. OTHER THAN THOSE EPISODES OF AGITATION, PT WAS PLEASANT AND COOPERATIVE WITH STAFF. LUNGS NOTED WITH SCATTERED WHEEZING THIS SHIFT ON AUSCULTATION. TOLERATED RA WELL. ABDOMEN IS NONDISTENDED, ACTIVE BOWEL SOUNDS, SOFT AND NONTENDER PER PALPATION. NICE CATHETER PRESENT, PATENT AND DRAINING DARK YELLOW URINE AND CLOUDY. TURNED AND REPOSITIONED Q2H. TOOK MEDICATIONS CRUSHED AND IN PUDDING. TOLERATED PUREED AND NECTAR THICK LIQUID DIET WELL. PULSES +2. AFIB WITH PVCS NOTED PER [employer] SALESPERSON. HR NOTED HIGH 130'S AT TIMES, ESPECIALLY WHEN AGITATION IS NOTED, HR DOES NOT SUSTAIN IN 130'S. VSS. WILL CONTINUE TO MONITOR.
[2019-09-18 07:32] LABS: POC Glucose,Bedside 126 (70-110)
--- NOTE | 2019-09-18 09:02 | HMH.ACPN2 ---
Internal Medicine - PN: Subj *Date: 09/18/19 *Time: 09:00 Exam - Constitutional no acute distress, chronically ill appearing - *Routine HEENT Exam Head: Present: normocephalic Eye: Present: PERRL ENT: Present: mucous membranes moist - *Routine Neck Exam Present: supple. Absent: lymphadenopathy - *Routine Respiratory Exam Present: rhonchi - *Routine Cardiovascular Exam Present: RRR, murmur - *Routine Abdominal Exam Present: soft, normoactive bowel sounds. Absent: tenderness - *Routine Extremities Exam Present: amputation. Absent: cyanosis, clubbing, edema Comments: left bka - *Routine Skin Exam Present: warm. Absent: rash - *Routine Neurological Exam Present: alert - Routine Psychiatric Exam Present: normal affect Assessment and Plan (1) Pneumonia Current visit: Yes Status: Acute Qualifiers: Pneumonia type: due to unspecified organism Laterality: right Lung location: lower lobe of lung Qualified Code(s): J18.9 - Pneumonia, unspecified organism Category: Medical Code(s): J18.9 - Pneumonia, unspecified organism (2) Sepsis Current visit: Yes Status: Acute Qualifiers: Sepsis type: sepsis due to unspecified organism Sepsis acute organ dysfunction status: without acute organ dysfunction Qualified Code(s): A41.9 - Sepsis, unspecified organism Category: Medical Code(s): A41.9 - Sepsis, unspecified organism (3) UTI (urinary tract infection) Current visit: Yes Status: Acute Qualifiers: Urinary tract infection type: acute cystitis Hematuria presence: without hematuria Qualified Code(s): N30.00 - Acute cystitis without hematuria Category: Medical Code(s): N39.0 - Urinary tract infection, site not specified (4) Atrial fibrillation with rapid ventricular response Current visit: Yes Status: Acute Category: Medical Code(s): I48.91 - Unspecified atrial fibrillation (5) Aortic stenosis, severe Current visit: No Status: Chronic Category: Medical Code(s): I35.0 - Nonrheumatic aortic (valve) stenosis (6) Atherosclerotic heart disease of [place] coronary artery without angina pectoris Current visit: No Status: Chronic Qualifiers: [place] vs. transplanted heart: [place] heart Qualified Code(s): I25.10 - Atherosclerotic heart disease of [place] coronary artery without angina pectoris Category: Medical Code(s): I25.10 - Atherosclerotic heart disease of [place] coronary artery without angina pectoris (7) Bilateral carotid bruits Current visit: No Status: Chronic Category: Medical Code(s): R09.89 - Other specified symptoms and signs involving the circulatory and respiratory systems (8) Carotid artery stenosis Current visit: No Status: Chronic Qualifiers: Laterality: bilateral Qualified Code(s): I65.23 - Occlusion and stenosis of bilateral carotid arteries Category: Medical Code(s): I65.29 - Occlusion and stenosis of unspecified carotid artery (9) Dementia with behavioral disturbance Current visit: No Status: Chronic Qualifiers: Category: Medical Code(s): F03.91 - Unspecified dementia with behavioral disturbance (10) Essential (primary) hypertension Current visit: No Status: Chronic Category: Medical Code(s): I10 - Essential (primary) hypertension (11) Hyperlipidemia, unspecified Current visit: No Status: Chronic Qualifiers: Hyperlipidemia type: other hyperlipidemia Qualified Code(s): E78.49 - Other hyperlipidemia Category: Medical Code(s): E78.5 - Hyperlipidemia, unspecified (12) Acquired absence of left leg below knee Current visit: No Status: Chronic Category: Medical Code(s): Z89.512 - Acquired absence of left leg below knee - Assessment and plan all Dx Assessment and Plan for all problems:: rounded with dr escobar all orders per dr escobar
--- NOTE | 2019-09-18 11:01 | XR_ITS ---
PROCEDURE: XR CHEST PORTABLE CLINICAL HISTORY: pneumonia Follow-up pneumonia COMPARISON: CR CXR CHEST(2 VIEWS-NOT PORTABLE) from 03/18/2016 CR XR CHEST PORTABLE from 12/24/2018 CR XR CHEST PORTABLE from 09/17/2019 FINDINGS: Cardiomegaly without failure. There are chronic interstitial changes noted. Patchy density is present in the right midlung once again noted suspicious for an area of infiltrate slightly worse. Patchy density also noted in the left lower lobe suspicious for infiltrate. No acute bony abnormalities. IMPRESSION: Cardiomegaly with developing right upper and right lower lobe pneumonia Dictated b Dashawn Weiner MD 09/18/2019 14:50 Dashawn Weiner MD in [facility] 09/18/2019 14:50
[2019-09-18 11:38] LABS: Lactic Acid 1.4 mmol/L (0.7-2.1)
[2019-09-18 12:29] LABS: POC Glucose,Bedside 100 (70-110)
--- NOTE | 2019-09-18 16:10 | PC.NURSE ---
RT administered Sodium Chloride to induce sputum sample, pt could not produce any at this time. Left cup at bedside.
[2019-09-18 17:07] LABS: POC Glucose,Bedside 115 (70-110)
--- NOTE | 2019-09-18 18:49 | PC.NURSE ---
Pt alert to slef. Has had audible wheezes this shift. Has maintained sats on RA. Has not ate well. Uriarte in place. Turned and repositioned. CB in reach. Confusion per baseline. VSS
[2019-09-18 21:25] LABS: POC Glucose,Bedside 122 (70-110)
[2019-09-19] VITALS (11 sets, daily range): BP systolic 120–143; BP diastolic 57–89; PULSE 62–130; RESP 18–24; TEMP 36.1–37; O2SAT 94–100; BMI 24.5
--- NOTE | 2019-09-19 04:22 | PC.NURSE ---
AT BEGINNING OF SHIFT PT. PLEASANT AND COOPERATIVE; ABLE TO STATE NAME AND . AFTER MIDNIGHT VITALS WERE TAKEN PT. BECAME INCREASINGLY AGITATED, CONFUSED AND COMBATIVE. PT. ATTEMPTED ON SEVERAL OCCASIONS TO D/C FC, IV'S AND HUMAN RESOURCES LEADER; INTERMITTENT TACHYCARDIA NOTED DURING AGITATION (HR: 130-140). FOR THE SAFETY OF STAFF AND PT., MITTENS WERE APPLIED; PT. BEGAN TO SLEEP APPROX. 1 HOUR AFTER. INTERMITTENT NONPRODUCTIVE WHEEZING COUGH NOTED.
[2019-09-19 05:51] LABS: POC Glucose,Bedside 108 (70-110)
[2019-09-19 05:54] LABS: Basophils % 0.4 % (0.1-2.0); Eosinophils # 0.2 K/mm3 (0.0-0.4); Eosinophils % 2.6 % (0.1-12.0); Hematocrit 35.3 % (42.0-52.0); Hemoglobin 11.8 g/dL (14.1-18.0); Lymphocytes # 1.1 K/mm3 (0.7-4.5); Lymphocytes % 18.5 % (10-50); Mean Corpuscular HGB Conc 33.4 g/dL (31.8-35.4); Mean Corpuscular Hemoglobin 26.8 pg (27.0-31.2); Mean Corpuscular Volume 80.3 fl (80-94); Mean Platelet Volume 8.6 fl (7.4-10.4); Monocytes # 0.5 K/mm3 (0.1-1.0); Monocytes % 8.5 % (1.7-9.3); Neutrophils # 4.1 K/mm3 (1.8-7.8); Neutrophils % 69.9 % (37.0-80.0); Platelet Count 245 K/mm3 (142-424); Red Cell Distribution Width 15.8 % (11.5-17.5); White Blood Count 5.8 K/mm3 (4.8-10.8)
[2019-09-19 05:57] LABS: Chloride 112 mmol/L (98-107); Potassium 4.6 mmoL/L (3.5-5.1); Sodium 143 mmol/L (136-145)
[2019-09-19 06:00] LABS: Anion Gap 15.6 mEq/L (5-15); Blood Urea Nitrogen 23 mg/dl (9-20); Calcium 9.7 mg/dl (8.4-10.2); Carbon Dioxide 20 mmol/L (22.0-30.0); Creatinine Clearance Estimated 52 mL/min (50-200); Estimated Glomerular Filt Rate 58 ml/min (>60); GFR (African American) 70 ML/MIN (>60); Glucose 116 mg/dl (74-100)
--- NOTE | 2019-09-19 06:21 | PC.NURSE ---
All care and charting by Arlene Gomez was completed under my direct supervision.
--- NOTE | 2019-09-19 08:55 | CT_ITS ---
PROCEDURE: CT CHEST WO CON CLINICAL INDICATION: pneumonia COMPARISON: CR XR CHEST PORTABLE from 09/18/2019 TECHNIQUE: Axial images obtained with sagittal and coronal reformats. All CT scans at the facility use one or more dose reduction, viz: automated exposure control, ma/kV adjustment per patient size (including targeted exams where dose is matched to indication, i.e. head), or iterative reconstruction technique. FINDINGS: HEART AND MEDIASTINAL STRUCTURES: There is mild generalized cardiomegaly. There is mild aortic tortuosity with calcification of the aortic arch. There is prominent calcification of the aortic valve. There are couple of normal sized nodes in the right paratracheal and right suprahilar region. LUNGS AND PLEURAL SPACES: There are large bilateral pleural effusions with fluid layering under the lungs bilaterally up to the level of the aortic arch. There is no pulmonary congestion. There is minimal focal postinflammatory scarring anterior segment left upper lobe. There is mild atelectasis in the posterior basilar segments of both lower lobes. No definite pneumonic infiltrate is noted. BONY STRUCTURES: There prominent multilevel degenerate changes of the visualized portion lower cervical spine and mild multilevel degenerate changes of the thoracic spine. UPPER ABDOMEN: There is a small hypodense lesion medial limb of the left adrenal gland likely a cyst or adenoma. There are multiple small calcified stones layering along the dependent wall of the gallbladder. ADDITIONAL FINDINGS: No other significant abnormalities. IMPRESSION: Moderate-sized bilateral pleural effusions apparently noncardiogenic with mild bilateral basilar atelectasis, no definite acute pneumonic infiltrate seen in either lung. Dictated by: Dr. Ramin Purcell MD 09/19/2019 12:54 Dr. Raimn Purcell MD in [facility] 09/19/2019 12:54
--- NOTE | 2019-09-19 09:04 | HMH.ACPN2 ---
Internal Medicine - PN: Subj *Date: 09/19/19 *Time: 09:04 Interval history: pt sitting up in bed and states he is doing well. Exam Vital signs and Labs for Last 24 Hours: Temp Pulse Resp BP Pulse Ox 98.6 F 108 H 18 120/64 95 09/19/19 08:00 09/19/19 08:29 09/19/19 08:00 09/19/19 08:00 09/19/19 08:29 Laboratory Results - last 24 hr 09/17/19 08:40: Urine Color Yellow, Urine Appearance Clear, Urine pH 5.5, Ur Specific [place] <= 1.005, Urine Protein Negative, Urine Glucose (UA) Negative, Urine Ketones Negative, Urine Blood 2+, Urine Nitrate Positive, Urine Bilirubin Negative, Urine Urobilinogen 0.2, Ur Leukocyte Esterase 2+ A, Urine RBC 5-10, Urine WBC 10-20, Urine Bacteria 2+ 09/18/19 11:25: Lactate 1.4 09/18/19 12:22: POC Glucose 100 09/18/19 16:55: POC Glucose 115 H 09/18/19 21:16: POC Glucose 122 H 09/19/19 05:09: POC Glucose 108 09/19/19 05:25: WBC 5.8, RBC 4.40 L, Hgb 11.8 L, Hct 35.3 L, MCV 80.3, MCH 26.8 L, MCHC 33.4, RDW 15.8, Plt Count 245, MPV 8.6, Neut % (Auto) 69.9, Lymph % (Auto) 18.5, Delta % (Auto) 8.5, Eos % (Auto) 2.6, Baso % (Auto) 0.4, Neut # (Auto) 4.1, Lymph # (Auto) 1.1, Delta # (Auto) 0.5, Eos # (Auto) 0.2, Baso # (Auto) 0.0 09/19/19 05:25: Sodium 143, Potassium 4.6, Chloride 112 H, Carbon Dioxide 20 L, Anion Gap 15.6 H, BUN 23 H, Creatinine 1.20, Estimated Creat Clear 52, Estimated GFR 58 L, Est GFR ( Amer) 70, Glucose 116 H, Calcium 9.7 I & O for Last 24 hours: Intake & Output 09/16/19 09/17/19 09/18/19 09/19/19 11:59 11:59 11:59 11:59 Intake Total 0 / 0 420 / 420 Output Total 1800 / 1800 300 / 300 Balance -1800 / -1800 120 / 120 Weight 188 lb 6.16 oz 183 lb 6 oz 181 lb 10.574 oz Microbiology Reports for the Last 24 Hours: Microbiology 09/17/19 08:40 Blood Blood Culture - Preliminary NO GROWTH AFTER 48 HOURS 09/17/19 08:40 Blood Blood Culture - Preliminary NO GROWTH AFTER 48 HOURS 09/17/19 08:40 Urine,Catheterized Urine Culture - Preliminary Gram Negative Rods - Constitutional no acute distress, chronically ill appearing - *Routine HEENT Exam Head: Present: normocephalic Eye: Present: PERRL ENT: Present: mucous membranes moist - *Routine Neck Exam Present: supple. Absent: lymphadenopathy - *Routine Respiratory Exam Present: CTA bilaterally - *Routine Cardiovascular Exam Present: RRR - *Routine Abdominal Exam Present: soft - *Routine Extremities Exam Present: amputation. Absent: cyanosis, clubbing, edema Comments: left bka - *Routine Skin Exam Present: warm. Absent: rash - *Routine Neurological Exam Present: alert - Routine Psychiatric Exam Present: normal affect Assessment and Plan (1) Pneumonia Current visit: Yes Status: Acute Qualifiers: Pneumonia type: due to unspecified organism Laterality: right Lung location: lower lobe of lung Qualified Code(s): J18.9 - Pneumonia, unspecified organism Category: Medical Code(s): J18.9 - Pneumonia, unspecified organism (2) Sepsis Current visit: Yes Status: Acute Qualifiers: Sepsis type: sepsis due to unspecified organism Sepsis acute organ dysfunction status: without acute organ dysfunction Qualified Code(s): A41.9 - Sepsis, unspecified organism Category: Medical Code(s): A41.9 - Sepsis, unspecified organism (3) UTI (urinary tract infection) Current visit: Yes Status: Acute Qualifiers: Urinary tract infection type: acute cystitis Hematuria presence: without hematuria Qualified Code(s): N30.00 - Acute cystitis without hematuria Category: Medical Code(s): N39.0 - Urinary tract infection, site not specified (4) Atrial fibrillation with rapid ventricular response Current visit: Yes Status: Acute Category: Medical Code(s): I48.91 - Unspecified atrial fibrillation (5) Aortic stenosis, severe Current visit: No Status: C
--- NOTE | 2019-09-19 09:09 | FL_ITS ---
PROCEDURE: FL BARIUM SWALLOW MODIFIED CLINICAL INDICATION: Pneumonia, trouble swallowing COMPARISON: No exams were available for comparison TECHNIQUE: Patient administered varying consistencies of barium contrast, while viewed in lateral position under real-time fluoroscopy with cine recording. FLUOROSCOPY TIME:2 minutes and 8 seconds The study was performed in conjunction with speech pathologist. Please see that report & recommendations. FINDINGS: Patient was given varying consistencies of barium. There was significant delay in initiation of the swallowing mechanism with pooling within the valleculae and piriform sinuses. No obvious tracheal aspiration or penetration. There was very poor oral motor control. IMPRESSION: Significant delay in initiation of the swallowing mechanism with pooling Please see speech pathologist report and recommendations. Dictated by: Dashawn Weiner MD 09/22/2019 11:47 Dashawn Weiner MD in [facility] 09/22/2019 11:47
--- NOTE | 2019-09-19 12:50 | HMH.SLMBS2 ---
Speech & Language Evaluation Speech/Language Mod Barium Swallow Start: 09/19/19 09:09 Freq: ONCE Status: Complete Protocol: Document 09/19/19 12:34 NAPOLEON (Rec: 09/19/19 12:50 NAPOLEON [id number]) General Information General Current Food Consistancy Pureed,[place] Liquids Dentition Poor Dentition Oxygen Status Room Air Ability to Follow Directions Poor Communication Ability Severe Impairment MBS Recommendations Diet Dietary Recommendations Pureed,Pudding Liquids Mod Barium Swallow Impressions Summary and Impressions Oral Phase Impression Severe Impairment Oral Phase Summary Mr. Ornelas was given the following consistencies: nectar via spoon, honey via spoon, pudding, and pureed. Mr Franki Ornelas has poor anterior to posterior movement with nectar and honey thick liquids . Pharyngeal Phase Impression Severe Impairment Pharyngeal Phase Summary Mr. Ornelas had over 15 second delay to clear pooling in valleculae from nectar and honey thick liquids. Pudding thick liquids given and cleared the pooling. Puree required 9 seconds to trigger swallow reflex. At this time, it is recommended he be placed on pureed with pudding thick liquids. Speech/Language MBS Assessment/Goals/Plan Assessment Date of Evaluation: 09/19/19 Evaluation Type Initial Certification Assessment/Problems Aspiration pneumonia Does Patient Qualify for Service No Qualify/Failure Comment Patient cannot follow basic commands Recommendations PHYSICIAN CERTIFICATION: The specified therapy services are required, authorized, and reviewed every 30 days. Diet Recommendations Pureed Liquid Type Recommendations Pudding Consistency SL Swallow Guidelines High aspiration risk,Crush meds as allowed* Plan Pt/Guardian verbally ack understanding No: CM and RN notified of dx/prognosis/goals G -code Required No Mod Barium Swallow Setup Exam Setup Radiologist Dashawn Weiner Level of Consciousness Awake Mod Barium Swallow-Lat View Textures Lateral View Food Presentation [place] Liquid via Spoon,Honey Liquid via Spoon,Pureed Food- Thick,Pudding Oral Phase Labial Closure
--- NOTE | 2019-09-19 14:18 | PC.NURSE ---
RT attempted to NT sxn pt to get sputum sample. Pt pushed hand away and stated he did not want anything going down his nose. RN notified.
[2019-09-19 16:17] LABS: POC Glucose,Bedside 136 (70-110)
--- NOTE | 2019-09-19 18:43 | PC.NURSE ---
RT ATTEMPTED TO COLLECT SPUTUM TWICE TODAY AND TWO TIMES PRIOR. UNABLE TO COLLECT SPUTUM AT THIS TIME
[2019-09-19 22:35] LABS: POC Glucose,Bedside 133 (70-110)
[2019-09-20] VITALS (7 sets, daily range): BP systolic 106–136; BP diastolic 60–80; PULSE 52–120; RESP 16–22; TEMP 36.4–36.9; O2SAT 91–97; BMI 24.3
--- NOTE | 2019-09-20 03:57 | PC.NURSE ---
Pt is alert to self. scattered wheezing on lung assessment. Afib on tele with HR less then 120s. F/C patent draining yellow urine. Pt received bath and bed change this shift. pt has rested quietly this shift. safety precautions in place
[2019-09-20 06:23] LABS: Basophils % 0.5 % (0.1-2.0); Eosinophils # 0.1 K/mm3 (0.0-0.4); Eosinophils % 2.2 % (0.1-12.0); Hematocrit 33.2 % (42.0-52.0); Hemoglobin 10.1 g/dL (14.1-18.0); Lymphocytes # 1.1 K/mm3 (0.7-4.5); Mean Corpuscular HGB Conc 30.4 g/dL (31.8-35.4); Mean Corpuscular Hemoglobin 24.1 pg (27.0-31.2); Mean Corpuscular Volume 79.5 fl (80-94); Mean Platelet Volume 8.7 fl (7.4-10.4); Monocytes # 0.5 K/mm3 (0.1-1.0); Monocytes % 9.2 % (1.7-9.3); Neutrophils # 4.1 K/mm3 (1.8-7.8); Platelet Count 227 K/mm3 (142-424); Red Blood Count 4.18 M/mm3 (4.60-6.20); Red Cell Distribution Width 16.1 % (11.5-17.5); White Blood Count 5.8 K/mm3 (4.8-10.8)
[2019-09-20 06:41] LABS: Chloride 114 mmol/L (98-107)
[2019-09-20 06:42] LABS: Potassium 4.1 mmoL/L (3.5-5.1); Sodium 144 mmol/L (136-145)
[2019-09-20 06:45] LABS: Anion Gap 15.1 mEq/L (5-15); Blood Urea Nitrogen 23 mg/dl (9-20); Calcium 9.6 mg/dl (8.4-10.2); Carbon Dioxide 19 mmol/L (22.0-30.0); Creatinine Clearance Estimated 52 mL/min (50-200); Estimated Glomerular Filt Rate 58 ml/min (>60); GFR (African American) 70 ML/MIN (>60); Glucose 119 mg/dl (74-100)
[2019-09-20 06:55] LABS: POC Glucose,Bedside 106 (70-110)
--- NOTE | 2019-09-20 07:38 | XR_ITS ---
PROCEDURE: XR CHEST PORTABLE CLINICAL HISTORY: sob COMPARISON: CR XR CHEST PORTABLE from 12/24/2018 CR XR CHEST PORTABLE from 09/17/2019 CR XR CHEST PORTABLE from 09/18/[address] CHEST WO CON from 09/19/2019 FINDINGS: Are fairly well expanded. There has been partial clearing of the ill-defined infiltrate in the right perihilar region and right upper lobe seen on the most recent study 09/18/2019. Ill-defined opacities are seen in both lower lobes and infrahilar regions probably is a representing chronic interstitial changes although a minimal superimposed infiltrate left base cannot be excluded. The left upper lung field is clear. There is mild generalized cardiomegaly however there is no pulmonary congestion and there is no pleural fluid. No acute bony abnormalities. IMPRESSION: Resolving right upper lobe infiltrate, bilateral lower lobe opacities most likely representing mild chronic interstitial fibrotic changes although a minimal superimposed infiltrate at the left base is a possibility basically stable and unchanged from the most recent study. Dictated by: Dr. Ramin Purcell MD 09/20/2019 14:42 Dr. Ramin Purcell MD in [facility] 09/20/2019 14:42
--- NOTE | 2019-09-20 08:00 | HMH.ACPN2 ---
Internal Medicine - PN: Subj *Date: 09/20/19 *Time: 08:00 Interval history: looks more tachypnea - no fever- e coli uti- Exam Vital signs and Labs for Last 24 Hours: Temp Pulse Resp BP Pulse Ox 97.6 F 52 L 17 119/80 93 L 09/20/19 04:00 09/20/19 04:00 09/20/19 04:00 09/20/19 04:00 09/20/19 04:00 Laboratory Results - last 24 hr 09/17/19 08:40: Urine Color Yellow, Urine Appearance Clear, Urine pH 5.5, Ur Specific [place] <= 1.005, Urine Protein Negative, Urine Glucose (UA) Negative, Urine Ketones Negative, Urine Blood 2+, Urine Nitrate Positive, Urine Bilirubin Negative, Urine Urobilinogen 0.2, Ur Leukocyte Esterase 2+ A, Urine RBC 5-10, Urine WBC 10-20, Urine Bacteria 2+ 09/19/19 15:50: POC Glucose 136 H 09/19/19 20:28: POC Glucose 133 H 09/20/19 05:47: WBC 5.8, RBC 4.18 L, Hgb 10.1 L, Hct 33.2 L, MCV 79.5 L, MCH 24.1 L, MCHC 30.4 L, RDW 16.1, Plt Count 227, MPV 8.7, Neut % (Auto) 70.0, Lymph % (Auto) 18.0, [place] % (Auto) 9.2, Eos % (Auto) 2.2, Baso % (Auto) 0.5, Neut # (Auto) 4.1, Lymph # (Auto) 1.1, [place] # (Auto) 0.5, Eos # (Auto) 0.1, Baso # (Auto) 0.0 09/20/19 05:47: Sodium 144, Potassium 4.1, Chloride 114 H, Carbon Dioxide 19 L, Anion Gap 15.1 H, BUN 23 H, Creatinine 1.20, Estimated Creat Clear 52, Estimated GFR 58 L, Est GFR ( Amer) 70, Glucose 119 H, Calcium 9.6 09/20/19 06:36: POC Glucose 106 I & O for Last 24 hours: Intake & Output 09/17/19 09/18/19 09/19/19 09/20/19 11:59 11:59 11:59 11:59 Intake Total 0 / 0 420 / 420 610 / 610 Output Total 1800 / 1800 300 / 300 600 / 600 Balance -1800 / -1800 120 / 120 10 / 10 Weight 188 lb 6.16 oz 183 lb 6 oz 181 lb 10.574 oz 180 lb 2 oz Microbiology Reports for the Last 24 Hours: Microbiology 09/17/19 08:40 Urine,Catheterized Urine Culture - Final Escherichia coli 09/17/19 08:40 Blood Blood Culture - Preliminary NO GROWTH AFTER 48 HOURS 09/17/19 08:40 Blood Blood Culture - Preliminary NO GROWTH AFTER 48 HOURS - Constitutional no acute distress - *Routine HEENT Exam Head: Present: normocephalic Eye: Present: EOMI, PERRL ENT: Present: mucous membranes dry - *Routine Neck Exam Absent: JVD - *Routine Respiratory Exam Present: decreased breath sounds - *Routine Cardiovascular Exam Present: RRR, murmur, S4 - *Routine Abdominal Exam Present: soft - *Routine Extremities Exam Absent: calf tenderness - *Routine Skin Exam Present: intact - *Routine Neurological Exam Present: alert, CN II-XII intact - Routine Psychiatric Exam Present: unable to assess Assessment and Plan (1) Pneumonia Current visit: Yes Status: Acute Qualifiers: Pneumonia type: due to unspecified organism Laterality: right Lung location: lower lobe of lung Qualified Code(s): J18.9 - Pneumonia, unspecified organism Category: Medical Code(s): J18.9 - Pneumonia, unspecified organism (2) Sepsis Current visit: Yes Status: Acute Qualifiers: Sepsis type: sepsis due to unspecified organism Sepsis acute organ dysfunction status: without acute organ dysfunction Qualified Code(s): A41.9 - Sepsis, unspecified organism Category: Medical Code(s): A41.9 - Sepsis, unspecified organism (3) UTI (urinary tract infection) Current visit: Yes Status: Acute Qualifiers: Urinary tract infection type: acute cystitis Hematuria presence: without hematuria Qualified Code(s): N30.00 - Acute cystitis without hematuria Category: Medical Code(s): N39.0 - Urinary tract infection, site not specified (4) Atrial fibrillation with rapid ventricular response Current visit: Yes Status: Acute Category: Medical Code(s): I48.91 - Unspecified atrial fibrillation (5) Aortic stenosis, severe Current visit: No Status: Chronic Category: Medical Code(s): I35.0 - Nonrheumatic aortic (valve) stenosis (6) Atherosclerotic heart
[2019-09-20 21:45] LABS: POC Glucose,Bedside 128 (70-110)
[2019-09-21] VITALS (9 sets, daily range): BP systolic 91–123; BP diastolic 67–78; PULSE 90–125; RESP 17–24; TEMP 36.4–37; O2SAT 93–98; BMI 24.3
[2019-09-21 00:56] LABS: POC Glucose,Bedside 115 (70-110)
[2019-09-21 00:56] LABS: POC Glucose,Bedside 102 (70-110)
--- NOTE | 2019-09-21 04:57 | PC.NURSE ---
Pt showed some agitation at the beginning of this shift but was easily redirected with playing music on his tv. Pt tolerated pudding thickened liquids and pudding with crushed meds during 2100 med pass appropriately. Pt has slept majority of the night. [place] is draining cloudy, dark yellow urine per gravity. Peripheral IV sites remain patent and SL. No complaints at this time. Call light within reach, will continue to monitor.
[2019-09-21 06:13] LABS: POC Glucose,Bedside 102 (70-110)
--- NOTE | 2019-09-21 07:23 | HMH.ACPN2 ---
Internal Medicine - PN: Subj *Date: 09/21/19 *Time: 07:23 Interval history: pt with occ wheezing some response to iv lasix Exam Vital signs and Labs for Last 24 Hours: Temp Pulse Resp BP Pulse Ox 98.0 F 119 H 20 98/72 L 97 09/21/19 04:00 09/21/19 04:00 09/21/19 04:00 09/21/19 04:00 09/21/19 04:00 Laboratory Results - last 24 hr 09/20/19 11:42: POC Glucose 102 09/20/19 15:58: POC Glucose 115 H 09/20/19 20:54: POC Glucose 128 H 09/21/19 05:11: POC Glucose 102 I & O for Last 24 hours: Intake & Output 09/18/19 09/19/19 09/20/19 09/21/19 11:59 11:59 11:59 11:59 Intake Total 0 / 0 420 / 420 610 / 610 100 / 100 Output Total 1800 / 1800 300 / 300 600 / 600 1850 / 1850 Balance -1800 / -1800 120 / 120 10 / 10 -1750 / -1750 Weight 183 lb 6 oz 181 lb 10.574 oz 180 lb 2 oz 179 lb 9 oz Microbiology Reports for the Last 24 Hours: Microbiology 09/20/19 21:30 Sputum - Expectorated Sputum Gram Stain - Final 09/20/19 21:30 Sputum - Expectorated Sputum Sputum Culture - Preliminary 09/17/19 08:40 Urine,Catheterized Urine Culture - Final Escherichia coli - Constitutional no acute distress - *Routine HEENT Exam Head: Present: normocephalic Eye: Present: EOMI, PERRL ENT: Present: mucous membranes dry - *Routine Neck Exam Absent: JVD - *Routine Respiratory Exam Present: decreased breath sounds - *Routine Cardiovascular Exam Present: RRR - *Routine Abdominal Exam Present: soft - *Routine Extremities Exam Present: edema - *Routine Skin Exam Present: intact - *Routine Neurological Exam Present: alert, CN II-XII intact - Routine Psychiatric Exam Present: unable to assess Assessment and Plan (1) Pneumonia Current visit: Yes Status: Acute Qualifiers: Pneumonia type: due to unspecified organism Laterality: right Lung location: lower lobe of lung Qualified Code(s): J18.9 - Pneumonia, unspecified organism Category: Medical Code(s): J18.9 - Pneumonia, unspecified organism (2) Sepsis Current visit: Yes Status: Acute Qualifiers: Sepsis type: sepsis due to unspecified organism Sepsis acute organ dysfunction status: without acute organ dysfunction Qualified Code(s): A41.9 - Sepsis, unspecified organism Category: Medical Code(s): A41.9 - Sepsis, unspecified organism (3) UTI (urinary tract infection) Current visit: Yes Status: Acute Qualifiers: Urinary tract infection type: acute cystitis Hematuria presence: without hematuria Qualified Code(s): N30.00 - Acute cystitis without hematuria Category: Medical Code(s): N39.0 - Urinary tract infection, site not specified (4) Atrial fibrillation with rapid ventricular response Current visit: Yes Status: Acute Category: Medical Code(s): I48.91 - Unspecified atrial fibrillation (5) Aortic stenosis, severe Current visit: No Status: Chronic Category: Medical Code(s): I35.0 - Nonrheumatic aortic (valve) stenosis (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
[2019-09-21 07:31] LABS: Basophils % 0.5 % (0.1-2.0); Eosinophils # 0.2 K/mm3 (0.0-0.4); Eosinophils % 3.3 % (0.1-12.0); Hematocrit 33.5 % (42.0-52.0); Hemoglobin 10.9 g/dL (14.1-18.0); Lymphocytes # 1.1 K/mm3 (0.7-4.5); Lymphocytes % 19.1 % (10-50); Mean Corpuscular HGB Conc 32.5 g/dL (31.8-35.4); Mean Corpuscular Hemoglobin 26.4 pg (27.0-31.2); Mean Corpuscular Volume 81.3 fl (80-94); Mean Platelet Volume 8.6 fl (7.4-10.4); Monocytes # 0.4 K/mm3 (0.1-1.0); Monocytes % 6.7 % (1.7-9.3); Neutrophils # 3.9 K/mm3 (1.8-7.8); Neutrophils % 70.4 % (37.0-80.0); Platelet Count 227 K/mm3 (142-424); Red Blood Count 4.12 M/mm3 (4.60-6.20); Red Cell Distribution Width 16.4 % (11.5-17.5); White Blood Count 5.5 K/mm3 (4.8-10.8)
[2019-09-21 07:35] LABS: Anion Gap 15.6 mEq/L (5-15); Blood Urea Nitrogen 23 mg/dl (9-20); Calcium 9.4 mg/dl (8.4-10.2); Carbon Dioxide 22 mmol/L (22.0-30.0); Chloride 111 mmol/L (98-107); Creatinine Clearance Estimated 52 mL/min (50-200); Estimated Glomerular Filt Rate 58 ml/min (>60); GFR (African American) 70 ML/MIN (>60); Glucose 100 mg/dl (74-100); Potassium 3.6 mmoL/L (3.5-5.1); Sodium 145 mmol/L (136-145)
--- NOTE | 2019-09-21 12:33 | HMH.ACPN ---
Internal Medicine - PN: Subj *Date: 09/21/19 *Time: 12:33 Exam Vital signs and Labs for Last 24 Hours: Temp Pulse Resp BP Pulse Ox 98.0 F 108 H 20 91/68 L 98 09/21/19 12:01 09/21/19 12:01 09/21/19 12:01 09/21/19 12:01 09/21/19 12:01 Laboratory Results - last 24 hr 09/20/19 11:42: POC Glucose 102 09/20/19 15:58: POC Glucose 115 H 09/20/19 20:54: POC Glucose 128 H 09/21/19 05:11: POC Glucose 102 09/21/19 06:27: WBC 5.5, RBC 4.12 L, Hgb 10.9 L, Hct 33.5 L, MCV 81.3, MCH 26.4 L, MCHC 32.5, RDW 16.4, Plt Count 227, MPV 8.6, Neut % (Auto) 70.4, Lymph % (Auto) 19.1, [place] % (Auto) 6.7, Eos % (Auto) 3.3, Baso % (Auto) 0.5, Neut # (Auto) 3.9, Lymph # (Auto) 1.1, [place] # (Auto) 0.4, Eos # (Auto) 0.2, Baso # (Auto) 0.0 09/21/19 06:27: Sodium 145, Potassium 3.6, Chloride 111 H, Carbon Dioxide 22, Anion Gap 15.6 H, BUN 23 H, Creatinine 1.20, Estimated Creat Clear 52, Estimated GFR 58 L, Est GFR ( Amer) 70, Glucose 100, Calcium 9.4 I & O for Last 24 hours: Intake & Output 09/18/19 09/19/19 09/20/19 09/21/19 23:59 23:59 23:59 23:59 Intake Total 300 / 300 630 / 630 100 / 100 220 / 220 Output Total 600 / 600 300 / 300 1800 / 2350 650 / 650 Balance -300 / -300 330 / 330 -1700 / -2250 -430 / -430 Weight 83.178 kg 82.4 kg 81.703 kg 81.448 kg Microbiology Reports for the Last 24 Hours: Microbiology 09/20/19 21:30 Sputum - Expectorated Sputum Gram Stain - Final 09/20/19 21:30 Sputum - Expectorated Sputum Sputum Culture - Preliminary Assessment and Plan (1) Pneumonia Current visit: Yes Status: Acute Qualifiers: Pneumonia type: due to unspecified organism Laterality: right Lung location: lower lobe of lung Qualified Code(s): J18.9 - Pneumonia, unspecified organism Category: Medical Code(s): J18.9 - Pneumonia, unspecified organism (2) Sepsis Current visit: Yes Status: Acute Qualifiers: Sepsis type: sepsis due to unspecified organism Sepsis acute organ dysfunction status: without acute organ dysfunction Qualified Code(s): A41.9 - Sepsis, unspecified organism Category: Medical Code(s): A41.9 - Sepsis, unspecified organism (3) UTI (urinary tract infection) Current visit: Yes Status: Acute Qualifiers: Urinary tract infection type: acute cystitis Hematuria presence: without hematuria Qualified Code(s): N30.00 - Acute cystitis without hematuria Category: Medical Code(s): N39.0 - Urinary tract infection, site not specified (4) Atrial fibrillation with rapid ventricular response Current visit: Yes Status: Acute Category: Medical Code(s): I48.91 - Unspecified atrial fibrillation (5) Aortic stenosis, severe Current visit: No Status: Chronic Category: Medical Code(s): I35.0 - Nonrheumatic aortic (valve) stenosis (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: No Status: Chronic Category: Medical Code(s): R09.89 - Other specified symptoms and signs involving the circulatory and respiratory systems (8) Carotid artery stenosis Current visit: No Status: Chronic Qualifiers: Laterality: bilateral Qualified Code(s): I65.23 - Occlusion and stenosis of bilateral carotid arteries Category: Medical Code(s): I65.29 - Occlusion and stenosis of unspecified carotid artery (9) Dementia with behavioral disturbance Current visit: No Status: Chronic Qualifiers: Category: Medical Code(s): F03.91 - Unspecified dementia with behavioral disturbance (10) Essential (primary) hypertension Current visit: No
--- NOTE | 2019-09-21 19:00 | PC.NURSE ---
ALERT AND ORIENTED TO SELF. PT UP TO CHAIR FOR LUNCH AND DINNER. 2X ASSIST TO TRANSFER. PT IS RESISTANT TO FOLLOW INSTRUCTIONS AND TENDS TO PULL ON LINES. PT PULLED IV OUT OF LAC. LUNGS ARE DIMINISHED WITH SCATTERED WHEEZING THROUGHOUT. ABDOMEN IS SOFT AND TENDER WITH ACTIVE BS IN ALL QUADS. BM THIS SHIFT. NICE CATHETER IS SECURE, PATENT, AND DRAINING SY URINE. VSS. NO DISTRESS NOTED. PT REMAINS AFIB ON TELEMETRY. SAFETY MEASURES IN PLACE, WILL CONTINUE TO MONITOR.
[2019-09-22] VITALS (7 sets, daily range): BP systolic 94–104; BP diastolic 52–70; PULSE 64–129; RESP 18–20; TEMP 36.4–36.7; O2SAT 97–100; BMI 23.7
[2019-09-22 00:37] LABS: POC Glucose,Bedside 130 (70-110)
[2019-09-22 00:37] LABS: POC Glucose,Bedside 134 (70-110)
[2019-09-22 00:37] LABS: POC Glucose,Bedside 132 (70-110)
--- NOTE | 2019-09-22 03:37 | PC.NURSE ---
Pt noted more alert, oriented, pleasant this shift compared to last evening shift. Pt sat up in chair for awhile until requesting to go back to bed. Only oriented to person at this time. Rested well with eyes closed t/o shift with no complaints. Denies pain when asked. Tolerated RA well with O2 sats 100%, denies soa. Bilateral lungs noted with expiratory rhonchi and wheezing upon auscultation. This RN encouraged use of incentive spirometer this shift, pt states he was too tired and just wanted to sleep . Will attempt again in am upon awakening. Pt able to feed himself this shift. Tolerated puree and honey thickened fluids well. Abdomen noted soft and nontender upon palpation. Adequate urine output noted via FC. Urine noted cloudy and dark yellow in color. Small BM noted, brief in place due to incontinence. No edema noted. Afib noted on manager monitoring. VSS. Remains safe with bed alarm functioning. Call light within reach. Will continue to monitor.
[2019-09-22 05:30] LABS: POC Glucose,Bedside 98 (70-110)
--- NOTE | 2019-09-22 08:58 | HMH.DCSUM ---
General - General Admission date:: 09/17/19 Discharge date: 09/22/19 HPI HPI: this pt from [facility] presented to the ed -4-year-old male presenting to the emergency department by EMS [facility] with chief complaint of altered mental status. EMS states that they were called for an elderly male who was combative, altered. He has dementia at baseline and takes Risperdal. No known recent illness, vomiting, diarrhea, fevers, rashes, cough. No known trauma. Patient does take aspirin and Plavix. Documentation states that he is nonverbal and minimally mobile at baseline. No family numbers listed for points of contact. All history obtained from EMS and documentation records.trial fibrillation with rapid ventricular response. Rate 126. QRS 72, QTc 573. pt with a fib In summary this is an 84-year-old male presenting to the emergency department with altered mental status. Patient is GCS 10 on arrival. Nonverbal. Vital signs show tachycardia to 115 bpm. Blood pressure adequate. Patient afebrile. Differential diagnoses are braod for altered mental status in a nonverbal penitentiary patient. Given IV fluid bolus. Plan to obtain CBC, CMP, chest x-ray, EKG, troponin profile, blood cultures, urinalysis, chest x-ray, noncontrast head CT. Laboratory results are generally unremarkable. No elevation white count. No acute kidney injury. Electrolytes within normal limits. Urinalysis shows bacteria, nitrite positive urinary tract infection. Patient given ertapenem. Meet sepsis criteria with tachycardia, source of infection. Patient given additional fluids to meet 30 cc/kg bolus. Mentation improved and he was slightly conversational. Chest x-ray shows left lower lobe infiltrate. Strep pneumo likely sensitive to ertapenem. We will continue this antibiotic. Patient will be admitted for further treatment of urinary tract infection, pneumonia, sepsis. Hospital Course Hospital Course: Microbiology 09/17/19 08:40 Blood Blood Culture - Final NO GROWTH AFTER 5 DAYS 09/17/19 08:40 Blood Blood Culture - Final NO GROWTH AFTER 5 DAYS 09/20/19 21:30 Sputum - Expectorated Sputum Gram Stain - Final 09/20/19 21:30 Sputum - Expectorated Sputum Sputum Culture - Preliminary 09/17/19 08:40 Urine,Catheterized Urine Culture - Final Escherichia coli Laboratory Tests 09/17/19 09/17/19 09/17/19 08:30 08:30 08:30 WBC 5.1 RBC 4.05 L Hgb 11.0 L Hct 32.0 L MCV 79.1 L MCH 27.1 MCHC 34.3 RDW 15.8 Plt Count 239 MPV 8.6 Neut % (Auto) 66.8 Lymph % (Auto) 23.4 [place] % (Auto) 7.1 Eos % (Auto) 2.5 Baso % (Auto) 0.3 Neut # (Auto) 3.4 Lymph # (Auto) 1.2 [place] # (Auto) 0.4 Eos # (Auto) 0.1 Baso # (Auto) 0.0 Specimen Source O2 % ABG pH ABG pCO2 ABG pO2 ABG HCO3 ABG Total CO2 ABG O2 Saturation ABG Base Excess [place] Test Vent Rate Tidal Volume PEEP Sodium 139 Potassium 4.5 Chloride 109 H Carbon Dioxide 22 Anion Gap 12.5 BUN 24 H Creatinine 1.00 Estimated Creat Clear 69 Estimated GFR 71 Est GFR ( Amer) 86 Glucose 115 H POC Glucose Lactate 1.0 Calcium 9.7 Total Bilirubin 0.6 AST 23 ALT 11 L Alkaline Phosphatase 108 Troponin I NT-Pro-B Natriuret Pep Total Protein 6.8 Albumin 3.3 L Globulin 3.5 H Albumin/Globulin Ratio 0.9 L Lipase 21 L Urine Color Urine Appearance Urine pH Ur Specific [place] Urine Protein Urine Glucose (UA) Urine Ketones Urine Blood Urine Nitrate Urine Bilirubin Urine Urobilinogen Ur Leukocyte Esterase Urine RBC Urine WBC Urine Bacteria Chlamy pneumoniae PCR Adenovirus (PCR) B. pertussis DNA (PCR) Coronavirus OC43 (PCR) Coronavirus HKU1 (PCR) Coronavirus 229E
== END 2019-09-22 15:30 | DRG 689 ==
LOC: ER 10:43 → 2ND 11:56
PROVIDERS: Nurse Practitioner Family; Admitting Provider Emergency Medicine; Emergency Provider Emergency Medicine; PCP Emergency Medicine; Visit Provider Emergency Medicine
DX: N39.0 Urinary tract infection, site not specified (principal); J18.9 Pneumonia, unspecified organism; F03.91 Unspecified dementia, unspecified severity, with behavioral disturbance; I48.0 Paroxysmal atrial fibrillation; I35.0 Nonrheumatic aortic (valve) stenosis; Z95.5 Presence of coronary angioplasty implant and graft; Z87.891 Personal history of nicotine dependence; I25.10 Atherosclerotic heart disease of native coronary artery without angina pectoris; I65.23 Occlusion and stenosis of bilateral carotid arteries; Z89.519 Acquired absence of unspecified leg below knee; I11.0 Hypertensive heart disease with heart failure; I50.9 Heart failure, unspecified; Z95.4 Presence of other heart-valve replacement; Z95.0 Presence of cardiac pacemaker; Z79.82 Long term (current) use of aspirin; Z79.02 Long term (current) use of antithrombotics/antiplatelets; Z79.84 Long term (current) use of oral hypoglycemic drugs
CPT/HCPCS: 36415; 70371; 71045; 71250; 80048; 80053; 81001; 82803; 82962; 83605; 83690; 83880; 84484; 85025; 87040; 87070; 87077; 87086; 87088; 87186; 87205; 87581; 87633; 87798; 92611; 93005; 94640; 96365; 96367; 99285; J1335; U0003